=== PATIENT | male | born 2000 | race Caucasian/White ===

== ENCOUNTER 2021-12-05 13:30 | Emergency (ER) | payer OTHER ==
[2021-12-05 14:33] VITALS: BP 104/76; PULSE 95; TEMP 98.2
[2021-12-05] MEDS ORDERED: ACETAMINOPHEN 500 MG TABLET (FP) PO ONE (14:48)
[2021-12-05] MEDS ORDERED: ACETAMINOPHEN 500 MG TABLET (FP) ONE (15:35)
[2021-12-06 12:11] LABS: SARS-CoV-2 NAA Not Detected (Not Detected)
== END 2021-12-05 16:37 | disposition home or self-care (01) ==
LOC: JER 13:30
DX: J06.9 Acute upper respiratory infection, unspecified (principal); J09.X2 Influenza due to identified novel influenza A virus with other respiratory manifestations; B00.1 Herpesviral vesicular dermatitis
CPT/HCPCS: 87804; 99283-25; C9803-CS; U0003; U0005

== ENCOUNTER 2024-06-24 11:14 | Emergency (ER) | payer OTHER ==
[2024-06-24 11:21] VITALS: BP 139/77; PULSE 67; RESP 18; TEMP 98.1; BMI 23.5
[2024-06-24] MEDS ORDERED: FAMOTIDINE 20 MG TABLET ONE (11:43)
[2024-06-24] MEDS: FAMOTIDINE 20 MG TABLET PO ONE (11:47)
[2024-06-24] MEDS: ACETAMINOPHEN 500 MG TABLET (FP) PO ONE (12:25)
[2024-06-24] MEDS ORDERED: ACETAMINOPHEN 500 MG TABLET (FP) ONE (12:26)
[2024-06-24 17:21] LABS: HIV INTERPRETATION NEGATIVE (NEGATIVE)
== END 2024-06-24 13:22 | disposition home or self-care (01) ==
LOC: JER 11:14
DX: R07.2 Precordial pain (principal); R42 Dizziness and giddiness
CPT/HCPCS: 36415; 71046-TC-FY; 86803; 87389; 93005; 93010; 99285-25